=== PATIENT | female | born 1995 | race Caucasian/White ===

== ENCOUNTER 2016-10-12 20:27 | Emergency (ER) | payer OTHER ==
[2016-10-12 20:44] VITALS: BP 131/81; PULSE 96; RESP 18; TEMP 98.3
--- NOTE | 2016-10-12 20:59 | ED ---
Upper Extremity HPI - General Chief Complaint: Extremity Injury, Upper Stated Complaint: wrist pain Time Seen by Provider: 10/12/16 20:45 Source: patient, RN notes reviewed, old records reviewed Mode of arrival: ambulatory - History of Present Illness Initial Comments: 21-year-old female presents the ED chief complaint of right wrist pain. Patient reports that the pain is started proximal only 2 hours ago. Patient reports that she noticed there was some swelling and irritation over the area. Patient reports that she has normal sensation to her hands and fingers but feels like her hand is heavy. Patient reports that she has full range of motion of her wrist and fingers. Denies any previous injuries or surgeries to the hand. She is right-handed. Patient denies any recent fever, chills, shortness of breath, chest pain, back pain, abdominal pain, nausea vomiting, numbness or tingling, dysuria or hematuria, constipation or diarrhea, headaches or visual changes, or any other current symptoms - Related Data Allergies Allergy/AdvReac Type Severity Reaction Status Date / Time amoxicillin Allergy Dyspnea Verified 10/12/16 20:48 duloxetine [From Cymbalta] Allergy Rash/Hives Verified 10/12/16 20:48 ibuprofen [From Motrin] Allergy Rash/Hives Verified 10/12/16 20:48 sulfamethoxazole Allergy Dyspnea Verified 10/12/16 20:48 [From Bactrim] trimethoprim [From Bactrim] Allergy Dyspnea Verified 10/12/16 20:48 copper AdvReac Unknown Verified 10/12/16 20:48 Review of Systems ROS Statement: Those systems with pertinent positive or pertinent negative responses have been documented in the HPI. ROS Other: All systems not noted in ROS Statement are negative. Past Medical History Additional Past Medical History / Comment(s): Chronic back pain History of Any Multi-Drug Resistant Organisms: None Reported Past Surgical History: No Surgical Hx Reported Past Psychological History: Anxiety, Depression Smoking Status: Never smoker Past Alcohol Use History: Occasional Past Drug Use History: None Reported General Exam - General Exam Comments Initial Comments: 21-year-old [employer]. No acute distress. General appearance: alert, in no apparent distress Head exam: Present: atraumatic, normocephalic, normal inspection Eye exam: Present: normal appearance, PERRL, EOMI. Absent: scleral icterus, conjunctival injection, periorbital swelling ENT exam: Present: normal exam, mucous membranes moist Neck exam: Present: normal inspection. Absent: tenderness, meningismus, lymphadenopathy Respiratory exam: Present: normal lung sounds bilaterally. Absent: respiratory distress, wheezes, rales, rhonchi, stridor Cardiovascular Exam: Present: regular rate, normal rhythm, normal heart sounds. Absent: systolic murmur, diastolic murmur, rubs, gallop, clicks GI/Abdominal exam: Present: soft, normal bowel sounds. Absent: distended, tenderness, guarding, rebound, rigid Extremities exam: Present: normal inspection, full ROM, normal capillary refill. Absent: tenderness, pedal edema, joint swelling, calf tenderness Back exam: Present: normal inspection Neurological exam: Present: alert, oriented X3, CN II-XII intact Psychiatric exam: Present: normal affect, normal mood Skin exam: Present: warm, dry, intact, normal color. Absent: rash Course Vital Signs 10/12/16 20:34 Temperature 98.3 F Pulse Rate 96 Respiratory 18 Rate Blood Pressure 131/81 O2 Sat by Pulse 100 Oximetry Disposition Clinical Impression: Wrist strain Disposition: HOME SELF-CARE Condition: Good Instructions: Wrist Injury (ED) Additional Instructions: Patient denies a take Motrin or Tylenol for pain. Patient should remain in the splint whenever ambulating. Follow-up with primary care provider if symptoms continue persist. Referrals: Milan Abraham MD [Primary Care Provider] - 1-2 days Time of Disposition: 21:31
--- NOTE | 2016-10-12 21:28 | XR ---
EXAMINATION TYPE: XR wrist complete RT DATE OF EXAM: 10/12/2016 COMPARISON: NONE HISTORY: Pain and swelling TECHNIQUE: 4 views FINDINGS: I see no fracture nor dislocation. Joint spaces are normal. There are no pathologic calcifi cations. IMPRESSION: Normal right wrist.
== END 2016-10-12 21:41 | disposition home or self-care (01) ==
LOC: EC 20:27
DX: S66.911A Strain of unspecified muscle, fascia and tendon at wrist and hand level, right hand, initial encounter (principal); Z88.0 Allergy status to penicillin; Z88.2 Allergy status to sulfonamides; Z88.6 Allergy status to analgesic agent; Z88.8 Allergy status to other drugs, medicaments and biological substances; Z91.048 Other nonmedicinal substance allergy status; X58.XXXA Exposure to other specified factors, initial encounter
CPT/HCPCS: 99284